=== PATIENT | female | born 1970 | race Caucasian/White ===

== ENCOUNTER 2020-09-29 02:02 | Outpatient (CLI) | payer OTHER, SELFPAY ==
[2020-10-01 18:51] LABS: Patient Race White; SARS-CoV-2 RNA Undetected (Undetected); SARS-CoV-2 Specimen Source Nasal
== END 2020-09-29 02:22 ==
PROVIDERS: PCP Emergency Medicine; Visit Provider Emergency Medicine
DX: Z11.59 Encounter for screening for other viral diseases (principal)
CPT/HCPCS: U0003

== ENCOUNTER 2025-10-23 12:56 | Emergency (ER) | payer OTHER, SELFPAY ==
[2025-10-23 13:01] VITALS: BP 114/58; PULSE 81; RESP 15; O2SAT 100
[2025-10-23] MEDS: Acetaminophen 500 MG TAB 1000 MG PO (13:20)
[2025-10-23] MEDS: oxyCODONE 5 MG TAB PO (13:20)
[2025-10-23] MEDS: Ketorolac 10 MG TAB PO (13:20)
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
--- NOTE | 2025-10-23 13:51 | DI.RAD_ITS ---
Exam(s) XR KNEE RT 3V AP,LAT,LAINE EXAM: XR KNEE RT 3V AP,LAT,LAINE h CLINICAL HISTORY: R knee injury while skiing. TECHNIQUE: 2D digital imaging was performed. COMPARISON: No exams were available for comparison FINDINGS: 3 views No evidence of fracture but there is a joint effusion signifying internal derangement. There is slight indentation of the cortical surface of the lateral femoral condyle. On the tunnel view there is subtle calcific lucency parallel to the articular surface at this level. Bone density normal. No osseous lesions. IMPRESSION: Findings as above. Suspect internal derangement such as possible ACL tear. Recommend follow-up MRI. DATA REPOSITORY: RADIATION DOSE DELIVERED:
[2025-10-23] MEDS: oxyCODONE 5 MG TAB 20 MG PO (14:22)
[2025-10-23 14:50] VITALS: BP 113/64; PULSE 78; RESP 16; TEMP 36.5; O2SAT 98
== END 2025-10-23 14:45 | disposition home or self-care (01) ==
LOC: ER 14:28
PROVIDERS: Emergency Provider Physician Assistant
DX: M23.91 Unspecified internal derangement of right knee (principal); W00.0XXA Fall on same level due to ice and snow, initial encounter; Y93.23 Activity, snow (alpine) (downhill) skiing, snowboarding, sledding, tobogganing and snow tubing
CPT/HCPCS: 99283 ×2; 29505; 73562